=== PATIENT | male | born 1990 | race African-American/Black ===

== ENCOUNTER 2017-11-19 22:56 | Observation (INO) ==
[2017-11-20 01:11] LABS: Basophils % 0.3 % (0.0-0.8); Eosinophils # 0.2 10*3/uL (0.0-0.87); Eosinophils % 2.1 % (0.00-10.9); Hematocrit 45.2 VOL% (42.0-52.0); Hemoglobin 15.4 GM/DL (14.0-18.0); Immature Granulocytes % 0.4 %; Immature Granulocytes Absolute 0.04 #; Lymphocytes # 1.4 10*3/uL (1.4-4.0); Lymphocytes % 12.5 % (21.2-54.2); Mean Corpuscular HGB Conc 34.1 GM/DL (32-36); Mean Corpuscular Hemoglobin 27 PG (27-34); Mean Corpuscular Volume 79.4 FL (87-102); Mean Platelet Volume 11.3 FL (9.6-12.0); Monocytes # 0.7 10*3/uL (0.11-0.8); NRBC # 0.02 10*3/uL; Neutrophils # 8.6 10*3/uL (1.4-7.4); Neutrophils % 78.7 % (38.7-73.9); Platelet Count 241 T/CUMM (130-400); Red Blood Count 5.69 MC/CUMM (3.8-5.5); Red Cell Distribution Width 14.7 % (9.3-17.3); White Blood Count 10.9 T/CUMM (4-12)
[2017-11-20 01:35] LABS: Alanine Aminotransferase 35 U/L (16-61); Albumin 3.6 G/DL (3.4-5.0); Alkaline Phosphatase 77 U/L (45-117); Aspartate Amino Transferase 39 U/L (0-37); Blood Urea Nitrogen 8 MG/DL (7-18); Calcium 8.8 MG/DL (8.5-10.1); Glucose 92 MG/DL (74-106); Osmolality,Calculated 274.5 MOS/KG (273-304); Potassium 4.2 MMOL/L (3.5-5.1); Sodium 139 MMOL/L (136-145); Total Protein 10.1 G/DL (6.4-8.3); Troponin I < 0.015 NG/ML (0.00-0.045)
[2017-11-20 04:18] LABS: ABG Base Excess 0.4 MMOL/L (-2.5-2.5); ABG HCO3 24.8 MMOL/L (20-26); ABG Oxygen Saturation 96.3 % (95-100); ABG PCO2 37.1 MM HG (35-48); ABG PH 7.427 (7.35-7.45); ABG PO2 70.1 MM HG (80-95); ABG TCO2 20.8 MMOL/L (23-27); Allen Test Positive
[2017-11-21 04:27] LABS: Basophils % 0.1 % (0.0-0.8); Hematocrit 44.6 VOL% (42.0-52.0); Immature Granulocytes % 0.3 %; Immature Granulocytes Absolute 0.04 #; Lymphocytes # 0.8 10*3/uL (1.4-4.0); Lymphocytes % 6.9 % (21.2-54.2); Mean Corpuscular HGB Conc 33.6 GM/DL (32-36); Mean Corpuscular Hemoglobin 27 PG (27-34); Mean Corpuscular Volume 79.5 FL (87-102); Mean Platelet Volume 11.6 FL (9.6-12.0); Monocytes # 0.6 10*3/uL (0.11-0.8); Monocytes % 5.1 % (1.7-12.7); Neutrophils # 10.3 10*3/uL (1.4-7.4); Neutrophils % 87.6 % (38.7-73.9); Platelet Count 256 T/CUMM (130-400); Red Blood Count 5.61 MC/CUMM (3.8-5.5); Red Cell Distribution Width 14.7 % (9.3-17.3); White Blood Count 11.7 T/CUMM (4-12)
[2017-11-21 04:42] LABS: Calcium 9.9 MG/DL (8.5-10.1); Osmolality,Calculated 275.8 MOS/KG (273-304)
[2017-11-22 11:14] VITALS: BP 155/81
== END 2017-11-22 14:55 | disposition home or self-care (01) ==
LOC: N.ED 22:56 → N.EDINP 22:56 → SUATTDRO 11-20 03:35 → N.3E 11-20 04:05
PROVIDERS: ADMIT Hospitalist; ATTEND Internal Medicine

== ENCOUNTER 2018-07-28 15:54 | Inpatient (IN) ==
[2018-07-28] MEDS ORDERED: SODIUM CHLORIDE 0.9% 2,000 ML IV STA (16:23)
[2018-07-28] MEDS ORDERED: ONDANSETRON 4 MG/2 ML VIAL IV STA (16:24)
[2018-07-28 17:20] LABS: Basophils # 0.1 10*3/uL (0.0-0.2); Basophils % 0.5 % (0.0-0.8); Hematocrit 47.9 VOL% (42.0-52.0); Hemoglobin 15.7 GM/DL (14.0-18.0); Immature Granulocytes % 1.2 %; Immature Granulocytes Absolute 0.13 #; Lymphocytes # 0.3 10*3/uL (1.4-4.0); Lymphocytes % 2.7 % (21.2-54.2); Mean Corpuscular HGB Conc 32.8 GM/DL (32-36); Mean Corpuscular Volume 79.2 FL (87-102); Monocytes % 0.8 % (1.7-12.7); Neutrophils % 94.8 % (38.7-73.9); Red Blood Count 6.05 MC/CUMM (3.8-5.5); Red Cell Distribution Width 16.9 % (9.3-17.3)
[2018-07-28 17:21] LABS: Platelet Count 137 T/CUMM (130-400)
[2018-07-28 17:31] LABS: Albumin 2.9 G/DL (3.4-5.0); Bilirubin,Total 0.8 MG/DL (0.2-1.0); Calcium 8.3 MG/DL (8.5-10.1); Osmolality,Calculated 275.8 MOS/KG (273-304); Total Protein 9.7 G/DL (6.4-8.3)
[2018-07-28 18:06] LABS: Band Neutrophils 31 % (0-10); Metamyelocytes 1 %; Segmented Neutrophils 68 % (50-85); Total Cells Counted 100
[2018-07-28 18:07] LABS: Platelet Estimate Adequate
[2018-07-28] MEDS ORDERED: ALBUTEROL 0.63 MG/3 ML NEB RESP TX PRN (18:51)
[2018-07-28] MEDS ORDERED: chlorproMAZINE INJ 25 MG in SODIUM CHLORIDE 0.9% 100 ML IV PRN (18:52)
[2018-07-28] MEDS: DEXTROSE 5% NACL 0.45% 1,000 ML IV SCH (20:00)
[2018-07-28] MEDS: ACETAMINOPHEN 500 MG TABLET PO PRN (20:01)
[2018-07-28] MEDS: PIPERACILLIN/TAZOBACTAM 3,375 MG in SODIUM CHLORIDE 0.9% 100 ML IV SCH (20:10)
[2018-07-28] MEDS ORDERED: ENOXAPARIN 40 MG/0.4 ML SYRINGE SUBCUT SCH (21:00)
[2018-07-28] MEDS: PANTOPRAZOLE 40 MG VIAL IV SCH (21:18)
[2018-07-29 02:44] LABS: Apearance,Urine CLEAR (Clear); Bilirubin,Urine Negative (Negative); Blood, Urine Large mg/dL (Negative); Glucose,Urine (UA) Negative (Negative); Ketones,Urine Negative (Negative); Mucus,Urine Occasional /LPF (Occasional); Nitrite,Urine Negative (Negative); Protein,Urine 100 MG/DL; RBC,Urine 5 /HPF (0-4); Squamous Epithelial Cell,Urine Occasional /HPF (0-10); Urine Color Yellow (Yellow); Urine Specific Gravity 1.012 (1.001-1.035); Urine Urobilinogen < 2.0 EU/DL (0.2-1.0); WBC,Urine 3 /HPF (0-6)
[2018-07-29] MEDS: ACETAMINOPHEN 500 MG TABLET PO PRN ×4 (03:23→17:47)
[2018-07-29] MEDS: ONDANSETRON 4 MG/2 ML VIAL IV PRN (04:34)
[2018-07-29] MEDS: PIPERACILLIN/TAZOBACTAM 3,375 MG in SODIUM CHLORIDE 0.9% 100 ML IV SCH (04:36)
[2018-07-29] MEDS: DEXTROSE 5% NACL 0.45% 1,000 ML IV SCH ×2 (05:20→13:33)
[2018-07-29 05:46] LABS: Basophils # 0.1 10*3/uL (0.0-0.2); Basophils % 0.4 % (0.0-0.8); Hematocrit 43.3 VOL% (42.0-52.0); Hemoglobin 14.6 GM/DL (14.0-18.0); Immature Granulocytes % 1.1 %; Immature Granulocytes Absolute 0.14 #; Lymphocytes # 0.6 10*3/uL (1.4-4.0); Lymphocytes % 4.8 % (21.2-54.2); Mean Corpuscular HGB Conc 33.7 GM/DL (32-36); Mean Corpuscular Volume 77.7 FL (87-102); Mean Platelet Volume 11.4 FL (9.6-12.0); Monocytes % 6.9 % (1.7-12.7); Neutrophils % 86.8 % (38.7-73.9); Red Blood Count 5.57 MC/CUMM (3.8-5.5); Red Cell Distribution Width 15.6 % (9.3-17.3); White Blood Count 13.2 T/CUMM (4-12)
[2018-07-29 05:50] LABS: Platelet Count 81 T/CUMM (130-400)
[2018-07-29 06:11] LABS: Band Neutrophils 9 % (0-10); Lymphocytes 2 % (20-55); Platelet Estimate Decreased; Segmented Neutrophils 83 % (50-85); Total Cells Counted 100
[2018-07-29 06:12] LABS: Hypochromasia Slight
[2018-07-29 06:15] LABS: Calcium 8.2 MG/DL (8.5-10.1)
[2018-07-29] MEDS ORDERED: MEROPENEM 1,000 MG in SODIUM CHLORIDE 0.9% 100 ML IV SCH (09:00)
[2018-07-29] MEDS: PANTOPRAZOLE 40 MG VIAL IV SCH ×2 (09:21→20:34)
[2018-07-29] MEDS: IBUPROFEN 400 MG TABLET PO PRN ×2 (12:27→16:27)
[2018-07-29] MEDS ORDERED: DOCUSATE SODIUM 100 MG CAPSULE PO PRN (12:55)
[2018-07-29] MEDS ORDERED: VANCOMYCIN INJ 2,000 MG in SODIUM CHLORIDE 0.9% 500 ML IV ONE (16:00)
[2018-07-29] MEDS: MEROPENEM 1,000 MG in SODIUM CHLORIDE 0.9% 100 ML IV SCH (18:14)
[2018-07-30] MEDS: DEXTROSE 5% NACL 0.45% 1,000 ML IV SCH ×4 (01:30→21:19)
[2018-07-30] MEDS: MEROPENEM 1,000 MG in SODIUM CHLORIDE 0.9% 100 ML IV SCH ×3 (01:35→17:28)
[2018-07-30] MEDS: VANCOMYCIN INJ 1,500 MG in SODIUM CHLORIDE 0.9% 500 ML IV SCH ×2 (04:07→17:20)
[2018-07-30 06:13] LABS: Basophils % 0.3 % (0.0-0.8); Eosinophils % 0.1 % (0.00-10.9); Hematocrit 42.5 VOL% (42.0-52.0); Hemoglobin 14.2 GM/DL (14.0-18.0); Immature Granulocytes % 0.6 %; Immature Granulocytes Absolute 0.07 #; Lymphocytes # 0.6 10*3/uL (1.4-4.0); Lymphocytes % 4.5 % (21.2-54.2); Mean Corpuscular HGB Conc 33.4 GM/DL (32-36); Mean Corpuscular Volume 78.1 FL (87-102); Monocytes % 5.7 % (1.7-12.7); Neutrophils % 88.8 % (38.7-73.9); Red Blood Count 5.44 MC/CUMM (3.8-5.5); Red Cell Distribution Width 15.7 % (9.3-17.3); White Blood Count 12.2 T/CUMM (4-12)
[2018-07-30 06:19] LABS: Platelet Count 57 T/CUMM (130-400)
[2018-07-30 06:34] LABS: Band Neutrophils 3 % (0-10); Hypochromasia 1+; Lymphocytes 3 % (20-55); Platelet Estimate Decreased; Segmented Neutrophils 90 % (50-85); Total Cells Counted 100
[2018-07-30 06:35] LABS: Calcium 8.5 MG/DL (8.5-10.1); Osmolality,Calculated 277.4 MOS/KG (273-304)
[2018-07-30] MEDS ORDERED: POTASSIUM CHLORIDE 20 MEQ TABLET PO ONE (08:14)
[2018-07-30] MEDS: PANTOPRAZOLE 40 MG VIAL IV SCH ×2 (08:54→21:14)
[2018-07-30] MEDS: ACETAMINOPHEN 500 MG TABLET PO PRN (09:17)
[2018-07-30] MEDS: IBUPROFEN 400 MG TABLET PO PRN ×2 (11:09→15:39)
[2018-07-30] MEDS: amLODIPine 5 MG TABLET PO SCH (12:38)
[2018-07-30] MEDS ORDERED: DICYCLOMINE 20 MG TABLET PO SCH (15:00)
[2018-07-30] MEDS: DICYCLOMINE 20 MG TABLET PO SCH ×2 (15:38→21:15)
[2018-07-30] MEDS: LACTOBACILLUS ACIDOPHILUS/BULGARICUS CAPLET PO SCH (21:15)
[2018-07-31] MEDS: MEROPENEM 1,000 MG in SODIUM CHLORIDE 0.9% 100 ML IV SCH ×2 (00:23→08:25)
[2018-07-31] MEDS: VANCOMYCIN INJ 1,500 MG in SODIUM CHLORIDE 0.9% 500 ML IV SCH (03:15)
[2018-07-31 05:54] LABS: Basophils % 0.3 % (0.0-0.8); Eosinophils % 0.1 % (0.00-10.9); Hematocrit 39.7 VOL% (42.0-52.0); Hemoglobin 13.6 GM/DL (14.0-18.0); Immature Granulocytes % 0.8 %; Immature Granulocytes Absolute 0.09 #; Lymphocytes # 0.5 10*3/uL (1.4-4.0); Mean Corpuscular HGB Conc 34.3 GM/DL (32-36); Mean Corpuscular Volume 76.8 FL (87-102); Monocytes % 8.3 % (1.7-12.7); Neutrophils % 85.5 % (38.7-73.9); Red Blood Count 5.17 MC/CUMM (3.8-5.5); Red Cell Distribution Width 15.9 % (9.3-17.3); White Blood Count 10.8 T/CUMM (4-12)
[2018-07-31 06:00] LABS: Platelet Count 74 T/CUMM (130-400)
[2018-07-31 06:10] LABS: Calcium 8.1 MG/DL (8.5-10.1); Osmolality,Calculated 265.2 MOS/KG (273-304)
[2018-07-31 06:14] LABS: Ferritin 516.2 ng/ml (26-388)
[2018-07-31 06:33] LABS: Platelet Estimate Decreased
[2018-07-31 06:34] LABS: Hypochromasia Slight
[2018-07-31 06:37] LABS: Folate 9.1 NG/ML (5.4-24.0); Vitamin B12 466 PG/ML (211-911)
[2018-07-31 06:42] LABS: Immunoglobulin A 607 MG/DL (70-400); Immunoglobulin G 2300 MG/DL (700-1600); Immunoglobulin M 142 MG/DL (40-230)
[2018-07-31] MEDS: ACETAMINOPHEN 500 MG TABLET PO PRN (07:28)
[2018-07-31 08:11] LABS: Sedimentation Rate-Westergren 36 MM/HR (0-15)
[2018-07-31 08:26] LABS: HIV Antigen/Antibody Result Reactive (Nonreactive)
[2018-07-31] MEDS: PANTOPRAZOLE 40 MG VIAL IV SCH ×2 (08:26→21:47)
[2018-07-31] MEDS: LACTOBACILLUS ACIDOPHILUS/BULGARICUS CAPLET PO SCH ×2 (08:26→21:47)
[2018-07-31] MEDS: amLODIPine 5 MG TABLET PO SCH ×2 (08:26→08:42)
[2018-07-31] MEDS: DICYCLOMINE 20 MG TABLET PO SCH ×3 (08:32→21:47)
[2018-07-31] MEDS: cefTRIAXone 2,000 MG in SYRINGE 1 EACH IV SCH (08:43)
[2018-07-31] MEDS: CHOLECALCIFEROL 1,000 UNIT TABLET PO SCH (08:49)
[2018-07-31] MEDS: ONDANSETRON 4 MG/2 ML VIAL IV PRN (08:49)
[2018-07-31 10:42] LABS: Albumin (SPE) Rel % 36.4 %; Alpha 1 (SPE) 0.5 G/DL (0.1-0.4); Alpha 1 (SPE) Rel % 6.1 %; Alpha 2 (SPE) 0.7 G/DL (0.4-1.0); Beta (SPE) Rel % 12.2 %; Gamma (SPE) Rel % 36.3 %
[2018-07-31 10:57] LABS: Total Protein (Chem) 8.3 G/DL (6.4-8.3)
[2018-07-31] MEDS: DEXTROSE 5% NACL 0.45% 1,000 ML IV SCH ×2 (11:07→21:48)
[2018-07-31 11:08] LABS: Immunoglobulin A (Chem) 607 MG/DL (70-400); Immunoglobulin G (Chem) 2300 MG/DL (700-1600); Immunoglobulin M (Chem) 142 MG/DL (40-230)
[2018-08-01 05:02] LABS: Total Protein 24 Hr Ur Result 6549 MG/24HR (0-149.1); Total Volume,Urine 2950 ML (400-2000)
[2018-08-01] MEDS: DEXTROSE 5% NACL 0.45% 1,000 ML IV SCH ×2 (05:55→21:42)
[2018-08-01 06:53] LABS: Basophils % 0.2 % (0.0-0.8); Eosinophils % 0.1 % (0.00-10.9); Hematocrit 37.7 VOL% (42.0-52.0); Immature Granulocytes % 0.9 %; Lymphocytes # 1.1 10*3/uL (1.4-4.0); Lymphocytes % 10.3 % (21.2-54.2); Mean Corpuscular HGB Conc 34.5 GM/DL (32-36); Mean Corpuscular Volume 75.7 FL (87-102); Monocytes % 13.1 % (1.7-12.7); Neutrophils % 75.4 % (38.7-73.9); Platelet Count 114 T/CUMM (130-400); Red Blood Count 4.98 MC/CUMM (3.8-5.5); Red Cell Distribution Width 15.7 % (9.3-17.3); White Blood Count 10.9 T/CUMM (4-12)
[2018-08-01 07:11] LABS: Hypochromasia 1+; Platelet Estimate Decreased
[2018-08-01 07:58] LABS: Calcium 8.3 MG/DL (8.5-10.1); Osmolality,Calculated 271.8 MOS/KG (273-304)
[2018-08-01 08:17] LABS: Hepatitis B Core IgM Quant < 0.05 Index; Hepatitis B Surface Ag Quant < 0.10 Index; Hepatitis B Surface Ag Result Negative (Negative); Hepatitis C Virus Ab Quant 0.38 Index; Hepatitis C Virus Ab Result Negative (Negative)
[2018-08-01] MEDS ORDERED: MEROPENEM 1,000 MG in SYRINGE 1 EACH IV ONE (09:00)
[2018-08-01] MEDS: PANTOPRAZOLE 40 MG VIAL IV SCH ×2 (09:43→21:40)
[2018-08-01 09:50] LABS: Rapid Plasma Reagin Confirm REACTIVE (Nonreactive)
[2018-08-01] MEDS ORDERED: POTASSIUM CHLORIDE RIDER 10 MEQ in PREMIX 1 EACH IV SCH (10:00)
[2018-08-01] MEDS: DICYCLOMINE 20 MG TABLET PO SCH ×3 (10:30→21:41)
[2018-08-01] MEDS: amLODIPine 5 MG TABLET PO SCH (10:30)
[2018-08-01] MEDS: CHOLECALCIFEROL 1,000 UNIT TABLET PO SCH (10:30)
[2018-08-01] MEDS: LACTOBACILLUS ACIDOPHILUS/BULGARICUS CAPLET PO SCH ×2 (10:30→21:41)
[2018-08-01] MEDS: POTASSIUM CHLORIDE RIDER 100 ML IV SCH ×8 (11:19→21:40)
[2018-08-01] MEDS ORDERED: LIDOCAINE 1%/EPI INJ 20 ML VIAL ONE (11:53)
[2018-08-01] MEDS ORDERED: TISSUE ADHESIVE 1 EACH APPLICATOR TOP ONE (11:53)
[2018-08-01 12:54] LABS: Albumin (UPE) Rel % 43.9 %; Alpha 1 (UPE) Rel % 16.2 %; Alpha 2 (UPE) 366.7 MG/24H; Alpha 2 (UPE) Rel % 5.6 %; Beta (UPE) Rel % 16.5 %; Gamma (UPE) Rel % 17.8 %
[2018-08-01] MEDS ORDERED: PROPOFOL 200 MG/20 ML VIAL IV ONE (15:29)
[2018-08-01] MEDS ORDERED: SEVOFLURANE 1 UNIT/15 MINUTE INH ONE (15:29)
[2018-08-01] MEDS ORDERED: DEXAMETHASONE 4 MG/1 ML VIAL ONE (15:30)
[2018-08-01] MEDS ORDERED: ONDANSETRON 4 MG/2 ML VIAL ONE (15:30)
[2018-08-01] MEDS ORDERED: KETOROLAC 30 MG/1 ML VIAL ONE (15:30)
[2018-08-01] MEDS ORDERED: fentaNYL 100 MCG/2 ML VIAL ONE (15:30)
[2018-08-01] MEDS ORDERED: MIDAZOLAM 2 MG/2 ML VIAL ONE (15:30)
[2018-08-01] MEDS ORDERED: ACETAMINOPHEN 1,000 MG/100 ML VIAL IV ONE (15:30)
[2018-08-01] MEDS ORDERED: NEOSTIGMINE 10 MG/10 ML VIAL ONE (15:30)
[2018-08-01] MEDS ORDERED: GLYCOPYRROLATE 0.4 MG/2 ML VIAL ONE (15:30)
[2018-08-01] MEDS ORDERED: ROCURONIUM 100 MG/10 ML VIAL IV ONE (15:30)
[2018-08-01] MEDS ORDERED: LACTATED RINGERS 1,000 ML IV ONE (15:30)
[2018-08-01] MEDS: MEROPENEM 1,000 MG in SYRINGE 1 EACH IV SCH (18:01)
[2018-08-02] MEDS: MEROPENEM 1,000 MG in SYRINGE 1 EACH IV SCH ×3 (01:52→16:20)
[2018-08-02] MEDS: MORPHINE 4 MG/1 ML VIAL IV PRN ×2 (06:26→19:51)
[2018-08-02] MEDS: DEXTROSE 5% NACL 0.45% 1,000 ML IV SCH ×3 (06:27→21:43)
[2018-08-02 06:58] LABS: Basophils % 0.3 % (0.0-0.8); Hematocrit 38.8 VOL% (42.0-52.0); Hemoglobin 13.1 GM/DL (14.0-18.0); Immature Granulocytes % 0.6 %; Immature Granulocytes Absolute 0.06 #; Lymphocytes # 0.9 10*3/uL (1.4-4.0); Mean Corpuscular HGB Conc 33.8 GM/DL (32-36); Mean Corpuscular Volume 76.1 FL (87-102); Mean Platelet Volume 12.4 FL (9.6-12.0); Monocytes % 6.2 % (1.7-12.7); Neutrophils % 83.9 % (38.7-73.9); Platelet Count 129 T/CUMM (130-400); Red Cell Distribution Width 15.8 % (9.3-17.3); White Blood Count 10.4 T/CUMM (4-12)
[2018-08-02 07:17] LABS: Burr Cells Slight; Hypochromasia 1+; Ovalocytes Slight
[2018-08-02 07:18] LABS: Platelet Estimate Decreased
[2018-08-02 07:31] LABS: Albumin 1.7 G/DL (3.4-5.0); Bilirubin,Total 0.4 MG/DL (0.2-1.0); Calcium 8.3 MG/DL (8.5-10.1); Osmolality,Calculated 280.4 MOS/KG (273-304); Total Protein 7.5 G/DL (6.4-8.3)
[2018-08-02] MEDS: LACTOBACILLUS ACIDOPHILUS/BULGARICUS CAPLET PO SCH ×2 (08:58→21:36)
[2018-08-02] MEDS: DICYCLOMINE 20 MG TABLET PO SCH ×3 (08:58→21:37)
[2018-08-02] MEDS: CHOLECALCIFEROL 1,000 UNIT TABLET PO SCH (08:58)
[2018-08-02] MEDS: amLODIPine 5 MG TABLET PO SCH (08:58)
[2018-08-02] MEDS ORDERED: BICILLIN LA 2,400,000 UNIT/4 ML SYRINGE IM ONE (09:00)
[2018-08-02 12:06] LABS: Toxoplasma IgG Value < 3 IU/mL
[2018-08-02] MEDS: cefTRIAXone 2,000 MG in SYRINGE 1 EACH IV SCH (23:36)
[2018-08-03] MEDS: MEROPENEM 1,000 MG in SYRINGE 1 EACH IV SCH ×3 (00:14→17:27)
[2018-08-03] MEDS ORDERED: MELATONIN 3 MG TABLET PO PRN (00:17)
[2018-08-03] MEDS: ACETAMINOPHEN 500 MG TABLET PO PRN ×2 (03:29→08:26)
[2018-08-03] MEDS: DEXTROSE 5% NACL 0.45% 1,000 ML IV SCH ×2 (05:37→13:05)
[2018-08-03 06:01] LABS: Basophils % 0.3 % (0.0-0.8); Eosinophils # 0.2 10*3/uL (0.0-0.87); Eosinophils % 1.6 % (0.00-10.9); Hemoglobin 12.1 GM/DL (14.0-18.0); Immature Granulocytes % 0.9 %; Immature Granulocytes Absolute 0.11 #; Lymphocytes # 1.7 10*3/uL (1.4-4.0); Lymphocytes % 14.6 % (21.2-54.2); Mean Corpuscular HGB Conc 33.6 GM/DL (32-36); Mean Corpuscular Volume 75.6 FL (87-102); Monocytes % 7.6 % (1.7-12.7); Platelet Count 187 T/CUMM (130-400); Red Blood Count 4.76 MC/CUMM (3.8-5.5); Red Cell Distribution Width 15.6 % (9.3-17.3); White Blood Count 11.7 T/CUMM (4-12)
[2018-08-03 06:30] LABS: Osmolality,Calculated 277.5 MOS/KG (273-304)
[2018-08-03] MEDS: amLODIPine 5 MG TABLET PO SCH (08:25)
[2018-08-03] MEDS: LACTOBACILLUS ACIDOPHILUS/BULGARICUS CAPLET PO SCH ×2 (08:25→20:06)
[2018-08-03 08:26] LABS: HIV 1 RNA Quant Reflex to Geno 274000 copies/mL (Undetected)
[2018-08-03] MEDS: CHOLECALCIFEROL 1,000 UNIT TABLET PO SCH (08:26)
[2018-08-03] MEDS: DICYCLOMINE 20 MG TABLET PO SCH ×3 (08:26→20:06)
[2018-08-03] MEDS: SODIUM HYPOCHLORITE 0.25% IRRIG 473 ML BOTTLE TOP SCH (08:30)
[2018-08-03 09:25] LABS: % CD4 (T Cells) 18 % (32-64); % CD8 (T Cells) 64 % (15-40); 4/8 Ratio 0.3 (>=0.9)
[2018-08-03] MEDS: MORPHINE 4 MG/1 ML VIAL IV PRN (10:15)
[2018-08-03] MEDS: POTASSIUM CHLORIDE RIDER 10 MEQ in PREMIX 1 EACH IV PRN ×4 (14:14→20:15)
[2018-08-03 18:31] LABS: TB2 Ag Minus Result 0 IU/mL
[2018-08-04] MEDS: DEXTROSE 5% NACL 0.45% 1,000 ML IV SCH ×3 (00:52→15:18)
[2018-08-04] MEDS: MEROPENEM 1,000 MG in SYRINGE 1 EACH IV SCH ×2 (00:54→09:24)
[2018-08-04] MEDS: POTASSIUM CHLORIDE RIDER 10 MEQ in PREMIX 1 EACH IV PRN ×3 (00:54→06:26)
[2018-08-04 05:55] LABS: Basophils % 0.1 % (0.0-0.8); Eosinophils # 0.2 10*3/uL (0.0-0.87); Eosinophils % 2.3 % (0.00-10.9); Hematocrit 36.3 VOL% (42.0-52.0); Hemoglobin 12.4 GM/DL (14.0-18.0); Immature Granulocytes % 0.6 %; Immature Granulocytes Absolute 0.05 #; Lymphocytes % 11.5 % (21.2-54.2); Mean Corpuscular HGB Conc 34.2 GM/DL (32-36); Mean Corpuscular Volume 76.1 FL (87-102); Mean Platelet Volume 12.3 FL (9.6-12.0); Monocytes % 7.7 % (1.7-12.7); Neutrophils % 77.8 % (38.7-73.9); Platelet Count 243 T/CUMM (130-400); Red Blood Count 4.77 MC/CUMM (3.8-5.5); Red Cell Distribution Width 15.7 % (9.3-17.3); White Blood Count 8.5 T/CUMM (4-12)
[2018-08-04 06:13] LABS: Calcium 8.2 MG/DL (8.5-10.1); Osmolality,Calculated 274.5 MOS/KG (273-304)
[2018-08-04] MEDS: CHOLECALCIFEROL 1,000 UNIT TABLET PO SCH (09:22)
[2018-08-04] MEDS: LACTOBACILLUS ACIDOPHILUS/BULGARICUS CAPLET PO SCH ×2 (09:23→20:47)
[2018-08-04] MEDS: DICYCLOMINE 20 MG TABLET PO SCH ×3 (09:23→20:49)
[2018-08-04] MEDS: amLODIPine 5 MG TABLET PO SCH (09:23)
[2018-08-04] MEDS: SODIUM HYPOCHLORITE 0.25% IRRIG 473 ML BOTTLE TOP SCH (09:23)
[2018-08-04] MEDS: cefTRIAXone 1,000 MG in SYRINGE 1 EACH IV SCH (09:28)
[2018-08-04 12:56] LABS: % CD16+CD56 (NK cells) 3 % (4-28); % CD19 (B Cells) 11 % (7-24); % CD4 (T Cells) 18 % (32-64); 4/8 Ratio 0.3 (>=0.9); CD16+CD56 (NK cells) 32 cells/mcL (59-513); CD19 (B Cells) 98 cells/mcL (81-409)
[2018-08-04] MEDS: metroNIDAZOLE 500 MG TABLET PO SCH ×2 (15:20→20:47)
[2018-08-04 19:18] LABS: Apearance,Urine CLEAR (Clear); Bilirubin,Urine Negative (Negative); Blood, Urine Moderate mg/dL (Negative); Glucose,Urine (UA) Negative (Negative); Ketones,Urine Negative (Negative); Mucus,Urine Occasional /LPF (Occasional); Nitrite,Urine Negative (Negative); Protein,Urine 100 MG/DL; RBC,Urine 17 /HPF (0-4); Urine Color Yellow (Yellow); Urine Specific Gravity 1.011 (1.001-1.035); WBC,Urine 2 /HPF (0-6)
[2018-08-05] MEDS: POTASSIUM CHLORIDE 20 MEQ TABLET PO PRN ×3 (01:30→08:02)
[2018-08-05 09:26] LABS: Basophils % 0.3 % (0.0-0.8); Eosinophils # 0.3 10*3/uL (0.0-0.87); Eosinophils % 3.9 % (0.00-10.9); Hematocrit 34.9 VOL% (42.0-52.0); Hemoglobin 11.5 GM/DL (14.0-18.0); Immature Granulocytes % 0.6 %; Immature Granulocytes Absolute 0.04 #; Lymphocytes # 0.8 10*3/uL (1.4-4.0); Mean Corpuscular Volume 78.3 FL (87-102); Mean Platelet Volume 11.5 FL (9.6-12.0); Monocytes % 8.4 % (1.7-12.7); Neutrophils % 74.8 % (38.7-73.9); Platelet Count 310 T/CUMM (130-400); Red Blood Count 4.46 MC/CUMM (3.8-5.5); Red Cell Distribution Width 15.9 % (9.3-17.3); White Blood Count 6.9 T/CUMM (4-12)
[2018-08-05 09:43] LABS: Calcium 8.3 MG/DL (8.5-10.1); Osmolality,Calculated 271.8 MOS/KG (273-304)
[2018-08-05] MEDS: DEXTROSE 5% NACL 0.45% 1,000 ML IV SCH (10:23)
[2018-08-05] MEDS: CHOLECALCIFEROL 1,000 UNIT TABLET PO SCH (10:28)
[2018-08-05] MEDS: LACTOBACILLUS ACIDOPHILUS/BULGARICUS CAPLET PO SCH (10:28)
[2018-08-05] MEDS: cefTRIAXone 1,000 MG in SYRINGE 1 EACH IV SCH (10:29)
[2018-08-05] MEDS: metroNIDAZOLE 500 MG TABLET PO SCH (10:29)
[2018-08-05] MEDS: amLODIPine 5 MG TABLET PO SCH (10:29)
[2018-08-05] MEDS: DICYCLOMINE 20 MG TABLET PO SCH (10:30)
[2018-08-05] MEDS: SODIUM HYPOCHLORITE 0.25% IRRIG 473 ML BOTTLE TOP SCH (10:34)
[2018-08-05 10:40] VITALS: BP 147/86
[2018-08-08 13:14] LABS: Hemoglobin A1 (Alkaline) 65.7 % (96.5-98.5); Hemoglobin A2 (Alkaline) 2.1 % (1.5-3.5); Hemoglobin F (Alkaline) 32.2 %
[2018-08-09 15:22] LABS: HIV-1 Genotypic PR-RT Drug Res INTERP; Tipranavir + Ritonavir SUSC
== END 2018-08-05 12:10 | disposition home health service (06) | DRG 853 ==
LOC: EDBD → EDUNIT# → N.ED 15:54 → N.EDINP 15:54 → N.5E 19:23 → SUATTDRO 07-29 12:59
PROVIDERS: ADMIT Hospitalist; ATTEND Internal Medicine